=== PATIENT | male | born 1955 | race Caucasian/White ===

== ENCOUNTER 2021-08-11 06:35 | Day surgery (SDC) | payer MEDICARE, OTHER ==
[~2021-08-11 06:35] MED LIST: Lidocaine 1%/Sod Bicarbonate in NS 8.4% 1 ML Syringe IDERM PRN; Sodium Chloride 0.9% 10 ML Syringe FLUSH PRN
[2021-08-11] MEDS ORDERED: Bupivacaine 0.5%/EPINEPHrine 1:200,000 50 ML MDV ONE (07:04)
--- NOTE | 2021-08-11 07:16 | PCM.PREANE ---
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 ) Gastrointestinal: Other (GERD takes over the counter for it) Neurological: Other (Hx of CVA, no deficits and nothing appreciated on MRI showing stroke) Other: Reports: None - Physical Assessment NPO Status Date: 08/10/21 NPO Status Time: 21:45 ASA Class: 2 Mental Status: Alert & Oriented x3 Airway Class: Mallampati = 2 Dentition: Reports: Edentulous Thyro-Mental Finger Breadths: 3 Mouth Opening Finger Breadths: 3 ROM/Head Extension: Full Lungs: Clear to Auscultation, Normal Respiratory Effort Cardiovascular: Regular Rate, Regular Rhythm - Imaging/EKG Impressions: EKG SR with Rbbb and LAFB, echo completed after this obtained and shows EF55-60% and no measurable deficits - Allergies Allergies/Adverse Reactions: Allergies Allergy/AdvReac Type Severity Reaction Status Date / Time cefdinir Allergy Rash Verified 08/10/21 10:40 Iodinated Contrast Media Allergy Rash Verified 08/10/21 10:40 - Blood Blood Available: No Product(s) Available: None - Acknowledgements Anesthesia Type Planned: General Anesthesia Pt an Appropriate Candidate for the Planned Anesthesia: Yes Alternatives and Risks of Anesthesia Discussed w Pt/Guardian: Yes Pt/Guardian Understands and Agrees with Anesthesia Plan: Yes PreAnesthesia Questionnaire HEENT History: Reports: Sinusitis Cardiovascular History: Reports: High Cholesterol, Hypertension Respiratory History: Reports: None Gastrointestinal History: Reports: None Genitourinary History: Reports: Renal Calculus [employer] 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 Musculoskeletal History: Reports: None Neurological History: Reports: CVA Psychiatric History: Reports: None Endocrine/Metabolic History: Reports: None Hematologic History: Reports: None Immunologic History: Reports: None Oncologic (Cancer) History: Reports: None Dermatologic History: Reports: None - Infectious Disease History Infectious Disease History: Reports: None - Past Surgical History Head Surgeries/Procedures: Reports: None HEENT Surgical History: Reports: Naso-Sinus Surgery Cardiovascular Surgical History: Reports: None Respiratory Surgical History: Reports: None Female Surgical History: Reports: None Male Surgical History: Reports: None Endocrine Surgical History: Reports: None Neurological Surgical History: Reports: None Musculoskeletal Surgical History: Reports: None Oncologic Surgical History: Reports: None Dermatological Surgical History: Reports: None - SUBSTANCE USE Tobacco Use Status *Q: Former Tobacco User Recreational Drug Use History: No - HOME MEDS Home Medications: Home Meds Amitriptyline HCl 100 mg PO BEDTIME 08/10/21 [History] Ciprofloxacin HCl/Dexameth [Ciproflox-Dexameth Otic Susp] 1 drop EARBOTH ASDIRECTED PRN 08/10/21 [History] Fluticasone Propionate [Flonase] 1 dose NASBOTH DAILY PRN 08/10/21 [History] Loratadine/Pseudoephedrine [Claritin-D 12 Hour] 1 tab PO BID PRN 08/10/21 [History] Pentoxifylline 400 mg PO BID 08/10/21 [History] Rosuvastatin [Crestor] 10 mg PO DAILY 08/10/21 [History] hydroCHLOROthiazide [Hydrochlorothiazide] 12.5 mg PO DAILY 08/10/21 [History] lisinopriL [Lisinopril] 20 mg PO DAILY 08/10/21 [History] - CURRENT (IN HOUSE) MEDS Current Meds: Current Medications Lactated Ringer's (Ringers, Lactated) 1,000 mls @ 125 mls/hr IV ASDIRECTED GIGI Stop: 08/11/21 23:00 Lidocaine/Sodium Bicarbonate (Lidocaine 1%/Sod Bicarbonate In Ns 8.4% 1 Ml Syringe) 0.25 ml IDERM ONETIME PRN PRN Reason: Prior to IV Start Stop: 08/11/21 18:00 Sodium Chloride (Sodium Chloride 0.9% 10 Ml Syringe) 10 ml FLUSH ASDIRECTED PRN PRN Reason: Keep Vein Open Stop: 08/11/21 18:00 Discontinued Medications Bupivacaine HCl/Epinephrine Bitart (Bupivacaine 0.5%/Epinephrine 1:200,000 50 Ml Mdv) Confirm Administered Dose 50 ml .ROUTE .STK-MED ONE Stop: 08/11/21 07:05
[2021-08-11] MEDS ORDERED: Ondansetron 4 MG/2 ML SDV ONE (07:26)
[2021-08-11] MEDS ORDERED: fentaNYL 100 MCG/2 ML SDV ONE (07:27)
[2021-08-11] MEDS ORDERED: Midazolam 1 MG/ML 2 ML SDV ONE (07:27)
[2021-08-11] MEDS ORDERED: Propofol 200 MG/20 ML SDV ONE (07:27)
[2021-08-11] MEDS ORDERED: Famotidine 20 MG/2 ML SDV IVPUSH ONE (07:34)
[2021-08-11] MEDS: Lactated Ringers 1,000 ML IV SCH ×2 (07:43→07:55)
[2021-08-11] MEDS ORDERED: Clindamycin Phosphate in D5W 900 MG in Premix Bag 1 BAG IV ONE ×2 (07:45)
--- NOTE | 2021-08-11 09:08 | PCM48HPAN ---
Post Anesthesia Note - EVALUATION WITHIN 48HRS OF ANESTHETIC Vital Signs in Normal Range: Yes Patient Participated in Evaluation: Yes Respiratory Function Stable: Yes Airway Patent: Yes Cardiovascular Function Stable: Yes Hydration Status Stable: Yes Pain Control Satisfactory: Yes Nausea and Vomiting Control Satisfactory: Yes Mental Status Recovered: Yes Vital Signs: Last Vital Signs Temp 36.8 C 08/11/21 07:00 Pulse 90 08/11/21 07:00 Resp 18 08/11/21 07:00 BP 131/77 08/11/21 07:00 Pulse Ox 98 08/11/21 07:00
--- NOTE | 2021-08-11 09:16 | PCM.PRNOTE ---
- Free Text/Narrative Note: Date: 08/11/2021 Operation: open right inguinal hernia repair Surgeon: Gumaro Gonzales MD Findings: ping-pong ball- sized direct right inguinal hernia, repaired with Progrip polyester mesh. Detailed Report: The patient was taken to the operating room and placed on the table in supine position. Timeout was performed and monitored anesthesia care was initiated. Hair was clipped in the lower right abdomen was prepped and draped in usual sterile fashion. The projection of the inguinal ligament was marked. 20 cc 0.5% Marcaine with epinephrine was used to anesthetize this line intradermally and in the subcutaneous tissue. A 7 cm incision was made along the line and dissection was carried down to the external oblique aponeurosis. The external ring was identified and hernia was apparent. An additional 10 cc of local anesthetic was injected just deep to the aponeurotic fibers. A small stab incision was made with 15 blade and Metzenbaum scissors were used to bluntly separate underlying canal contents from the roof of the inguinal canal. External oblique fibers were opened distally to the external ring and proximally. The spermatic cord was dissected circumferentially at the level of the pubic tubercle. A Franklin drain was placed around the cord for aid with retraction. There was an obvious direct fat-containing direct hernia with no associated indirect hernia or sac adherent to the spermatic cord. A Trejo catheter was used to aid with keeping the hernia reduced as mesh repair was performed. A 9 x 15 cm piece of ProGrip polyester mesh was cut to size and introduced into the field. 2-0 Prolene suture was used to anchor the mesh at Chris's ligament, with good inferior and medial overlap. The inferolateral edge of the mass was sutured to the shelving edge of the inguinal ligament with running 2-0 Prolene. A slit was cut in the mesh to permit passage of the spermatic cord. The mesh leaflets were brought around the cord and the internal ring was reconstructed. A single stitch was placed to recreate the ring. A single medial tacking stitch was placed at the internal oblique aponeurosis to keep the mesh lying nice and flat. The superior lateral parts of the mesh were laid flat deep to the external oblique aponeurosis. The external oblique was then closed with running 3-0 Vicryl suture. Newton's fascia was closed with interrupted Vicryl suture and a running subcuticular stitch was placed for skin closure. The wound was dressed with Dermabond. An additional 10 cc was placed for regional block just medial to the ASIS. The patient tolerated the procedure well.
== END 2021-08-11 10:13 | disposition home or self-care (01) ==
LOC: JD.SDS 06:35
PROVIDERS: ATTEND Surgery
DX: K40.90 Unilateral inguinal hernia, without obstruction or gangrene, not specified as recurrent (principal); I10 Essential (primary) hypertension; E78.00 Pure hypercholesterolemia, unspecified; K21.9 Gastro-esophageal reflux disease without esophagitis; Z88.8 Allergy status to other drugs, medicaments and biological substances; Z91.041 Radiographic dye allergy status; Z79.899 Other long term (current) drug therapy; Z98.890 Other specified postprocedural states; Z86.73 Personal history of transient ischemic attack (TIA), and cerebral infarction without residual deficits; Z87.891 Personal history of nicotine dependence
CPT/HCPCS: 49505; C1781; J2250; J2405; J2704; J3010; J3490; J7120; 00830

== ENCOUNTER 2025-04-28 08:05 | Emergency (ER) | payer MEDICARE, OTHER | END 2025-04-28 08:55 | disposition home or self-care (01) | LOC: JD.ED 08:05 | DX: S00.551A Superficial foreign body of lip, initial encounter (principal); I10 Essential (primary) hypertension; E78.00 Pure hypercholesterolemia, unspecified; Z86.73 Personal history of transient ischemic attack (TIA), and cerebral infarction without residual deficits; Z79.899 Other long term (current) drug therapy; Z88.8 Allergy status to other drugs, medicaments and biological substances; Z91.041 Radiographic dye allergy status; W45.8XXA Other foreign body or object entering through skin, initial encounter | CPT/HCPCS: 99282; 99283 ==